=== PATIENT | male | born 1960 | race American Indian/Alaskan Native ===

== ENCOUNTER 2021-09-25 13:21 | Inpatient (IN) | payer MEDICAID ==
[2021-09-25] MEDS ORDERED: hydrALAZINE 20 MG/1 ML INJ IV ONE (13:31)
--- NOTE | 2021-09-25 13:37 | Emergency Department Report ---
<LINDSAY BOSWELLMicheal - Last Filed: 09/25/21 16:17> ED General Adult HPI - General Chief complaint: High BP Stated complaint: NAUSEA/HYPERTENSION Time Seen by Provider: 09/25/21 13:29 - Related Data Home Medications Medication Instructions Recorded Confirmed Last Taken lisinopriL [Zestril TAB] 40 mg PO QDAY 09/26/21 09/26/21 Unknown Previous Rx's Medication Instructions Recorded Last Taken Type Valsartan [Diovan] 160 mg PO Q12H #60 tablet 09/27/21 Unknown Rx Zolpidem [Ambien] 5 mg PO QHS PRN #30 tablet 09/27/21 Unknown Rx amLODIPine 10 mg PO QDAY #30 tablet 09/27/21 Unknown Rx carvediloL [Coreg] 12.5 mg PO BID #60 09/27/21 Unknown Rx Allergies Allergy/AdvReac Type Severity Reaction Status Date / Time No Known Allergies Allergy Verified 09/25/21 13:31 ED Past Medical Hx - Medications Home Medications: Home Medications Medication Instructions Recorded Confirmed Last Taken Type lisinopriL [Zestril TAB] 40 mg PO QDAY 09/26/21 09/26/21 Unknown History Valsartan [Diovan] 160 mg PO Q12H #60 tablet 09/27/21 Unknown Rx Zolpidem [Ambien] 5 mg PO QHS PRN #30 tablet 09/27/21 Unknown Rx amLODIPine 10 mg PO QDAY #30 tablet 09/27/21 Unknown Rx carvediloL [Coreg] 12.5 mg PO BID #60 09/27/21 Unknown Rx ED Medical Decision Making - Lab Data Result diagrams: 09/25/21 14:10 09/25/21 14:10 - Radiology Data Radiology results: report reviewed - Medical Decision Making Patient is 61 years old male signed out to me by my colleagues . Patient presented with significantly elevated blood pressure. Patient received hydralazine 20 mg IV with no significant improvement. He also received lab etalol 20 mg IV with no significant improvement. I started patient on Cardene drip. Labs reviewed and is unremarkable. I discussed the patient with Dr. Puente, he agreed to admit the patient to the [facility] for further management. Critical Care Time: Yes Critical care time in (mins) excluding proc time.: 35 ED Disposition Clinical Impression: Hypertensive urgency, Hypertensive emergency Disposition: 09 ADMITTED INPATIENT Is pt being admited?: Yes Condition: Stable <ROSY PUENTE - Last Filed: 09/26/21 08:14> ED Medical Decision Making - Lab Data Result diagrams: 09/26/21 05:35 09/26/21 05:35 <HECTOR ZAPIEN - Last Filed: 09/28/21 16:32> ED General Adult HPI - General Source: patient, EMS Mode of arrival: Ambulatory Limitations: No Limitations - History of Present Illness Initial comments: 61-year-old male brought in by ambulance with history of generalized malaise associated with elevated blood pressure. Patient reported that he has not been feeling well since last night. He reports nausea without any emesis. Patient reported that he has not taken his antihypertensive medication. EMS noted that patient blood pressure was above 200/100 mmHg on presentation. Patient denies any fever or chills. No other modifying or positive factors reported. ED Review of Systems ROS: Stated complaint: NAUSEA/HYPERTENSION Other details as noted in HPI Comment: All other systems reviewed and negative Constitutional: malaise Cardiovascular: other (Hypertensive urgency) ED Past Medical Hx - Past Medical History Hx Hypertension: Yes ED Physical Exam - General Limitations: No Limitations General appearance: alert, in no apparent distress - Head Head exam: Present: atraumatic, normal inspection - Eye Eye exam: Present: normal appearance Pupils: Present: normal accommodation - ENT ENT exam: Present: normal exam, normal orophraynx, mucous membranes dry, TM's normal bilaterally - Neck Neck exam: Present: normal inspection, full ROM. Absent: tenderness, meningismus - Respiratory Respiratory exam: Present: normal lung sounds bilaterally. Absent: respiratory distress, accessory muscle use - Cardiovascular Cardiovascular Exam: Present: regular rate, normal rhythm, normal heart sounds - GI/Abdominal GI/Abdominal exam: Present: soft, normal bowel sounds. Absent: distended, tenderness - Extremities Exam Extremities exam: Present: normal inspection, full ROM, normal capillary refill - Back Exam Back exam: Present: normal inspection, full ROM. Absent: tenderness - Neurological Exam Neurological exam: Present: alert, altered, oriented X3 - Psychiatric Psychiatric exam: Present: normal affect, normal mood ED Course Vital Signs 05/04/22 05/04/22 05/04/22 13:27 13:30 13:31 Pulse Rate 75 Respiratory Rate Blood Pressure Blood Pressure 146/128 [Left] O2 Sat by Pulse 95 98 98 Oximetry 09/25/21 09/25/21 09/25/21 13:45 13:48 14:01 Pulse Rate 73 82 Respiratory 17 18 Rate Blood Pressure Blood Pressure 211/114 [Left] O2 Sat by Pulse 98 100 98 Oximetry 09/25/21 09/25/21 09/25/21 14:15 14:31 14:54 Pulse Rate 85 87 79 Respiratory 14 17 12 Rate Blood Pressure 208/109 Blood Pressure [Left] O2 Sat by Pulse 99 99 99 Oximetry 09/25/21 09/25/21 09/25/21 14:56 15:01 15:02 Pulse Rate 87 76 80 Respiratory 16 22 Rate Blood Pressure 187/103 208/109 Blood Pressure 208/109 [Left] O2 Sat by Pulse 100 99 Oximetry 09/25/21 09/25/21 09/25/21 15:15 15:31 15:45 Pulse Rate 80 69 69 Respiratory 12 16 18 Rate Blood Pressure 192/110 187/109 183/105 Blood Pressure [Left] O2 Sat by Pulse 99 99 98 Oximetry 09/25/21 09/25/21 09/25/21 16:01 16:15 16:31 Pulse Rate 67 64 69 Respiratory 19 17 16 Rate Blood Pressure 210/103 199/101 186/105 Blood Pressure [Left] O2 Sat by Pulse 99 99 98 Oximetry 09/25/21 09/25/21 09/25/21 16:45 17:01 17:15 Pulse Rate Respiratory Rate Blood Pressure 181/96 201/110 205/99 Blood Pressure [Left] O2 Sat by Pulse 100 99 99 Oximetry 09/25/21 09/25/21 09/25/21 17:31 17:45 18:01 Pulse Rate Respiratory Rate Blood Pressure 202/108 202/108 184/96 Blood Pressure [Left] O2 Sat by Pulse 100 98 99 Oximetry 09/25/21 09/25/21 09/25/21 18:15 18:31 18:45 Pulse Rate Respiratory Rate Blood Pressure 184/96 184/96 184/96 Blood Pressure [Left] O2 Sat by Pulse 100 100 98 Oximetry 09/25/21 09/25/21 09/25/21 19:03 19:10 19:15 Pulse Rate 80 80 Respiratory 13 17 Rate Blood Pressure 184/96 192/102 Blood Pressure 192/102 [Left] O2 Sat by Pulse 100 100 100 Oximetry 09/25/21 09/25/21 09/25/21 19:31 19:45 20:01 Pulse Rate 80 80 90 Respiratory 14 17 16 Rate Blood Pressure 167/88 167/88 170/91 Blood Pressure [Left] O2 Sat by Pulse 100 100 99 Oximetry 09/25/21 09/25/21 09/25/21 20:15 20:31 20:45 Pulse Rate Respiratory Rate Blood Pressure 170/91 175/133 175/133 Blood Pressure [Left] O2 Sat by Pulse 99 98 98 Oximetry 09/25/21 09/25/21 09/25/21 21:01 21:15 21:31 Pulse Rate Respiratory Rate Blood Pressure 169/89 183/94 183/94 Blood Pressure [Left] O2 Sat by Pulse 97 100 100 Oximetry 09/25/21 09/25/21 09/25/21 21:41 21:51 22:01 Pulse Rate Respiratory Rate Blood Pressure 183/94 183/94 187/101 Blood Pressure [Left] O2 Sat by Pulse 100 100 99 Oximetry 09/25/21 09/25/21 09/25/21 22:11 22:21 22:31 Pulse Rate Respiratory Rate Blood Pressure 187/101 187/101 187/101 Blood Pressure [Left] O2 Sat by Pulse 100 100 100 Oximetry 09/25/21 09/25/21 09/25/21 22:41 22:51 23:00 Pulse Rate Respiratory Rate Blood Pressure 187/101 187/101 Blood Pressure [Left] O2 Sat by Pulse 100 100 99 Oximetry 09/25/21 23:01 Pulse Rate Respiratory Rate Blood Pressure 187/101 Blood Pressure [Left] O2 Sat by Pulse 100 Oximetry - Reevaluation(s) Reevaluation #1: 09/25/21 13:36 Here with not feeling well and noted with hypertensive urgency with blood pressure of 218/116 mmHg on presentation to the emergency room--we will go ahead and give hydralazine 20 mg IV x1 considering that this patient heart rate was 62 bpm--we will also go ahead and check cardiac work-up including troponin, BNP, and routine CBC and CMP for any electrolyte or infectious process. Reevaluation #2: 09/25/21 14:58 Upon reevaluation patient blood pressure is only better to 208/106 mmHg so we will go ahead and give additional 20 mg of labetalol and continue to monitor. Patient work-up lab still pending at this point. Patient will be signed out to incoming physician for further evaluation and treatment. 09/25/21 15:29 Pt signed out to Dr Boswell while waiting for patient workup labs and to continue to monitor patients blood pressure. ED Medical Decision Making - Lab Data Result diagrams: 09/26/21 05:35 09/26/21 05:35 Critical care attestation.: If time is entered above; I have spent that time in minutes in the direct care of this critically ill patient, excluding procedure time. ED Disposition Is pt being admited?: No Does the pt Need Aspirin: No
--- NOTE | 2021-09-25 14:09 | XRay Report ---
XR chest 1V ap INDICATION / CLINICAL INFORMATION: HTN. COMPARISON: None available. FINDINGS: SUPPORT DEVICES: None. HEART /PULMONARY VASCULATURE: Heart is enlarged. No significant pulmonary vasculature congestion. LUNGS / PLEURA: No significant pulmonary or pleural abnormality. No pneumothorax. IMPRESSION: 1. No acute findings. Signer Name: Chris Tolentino MD Signed: 09/25/2021 2:04 PM Workstation Name: [id number]
[2021-09-25 14:45] LABS: Basophils % (Auto) 0.6 % (0.0-1.8); Eosinophils % (Auto) 0.8 % (0.0-4.3); Hematocrit 40.2 % (35.5-45.6); Hemoglobin 14.1 gm/dl (11.8-15.2); Lymphocytes # (Auto) 0.7 K/mm3 (1.2-5.4); Lymphocytes % (Auto) 16.3 % (13.4-35.0); Mean Corpuscular HGB Conc 35 % (32-34); Mean Corpuscular Volume 93 fl (84-94); Monocytes # (Auto) 0.4 K/mm3 (0.0-0.8); Monocytes % (Auto) 8.8 % (0.0-7.3); Platelet Count 121 K/mm3 (140-440); Red Blood Count 4.34 M/mm3 (3.65-5.03); Red Cell Distribution Width 13.8 % (13.2-15.2)
[2021-09-25 14:54] LABS: INR 0.97 (0.87-1.13)
[2021-09-25 14:55] LABS: Partial Thromboplastin Time 27.9 Sec. (24.2-36.6)
[2021-09-25 14:58] LABS: Alanine Aminotransferase 7 units/L (7-56); Albumin 4.6 g/dL (3.9-5); BUN/Creatinine Ratio 8; Blood Urea Nitrogen 11 mg/dL (9-20); Calcium 9.5 mg/dL (8.4-10.2); Hemolysis Index 8
[2021-09-25] MEDS ORDERED: ACETAMINOPHEN 325 MG TAB PO PRN ×2 (16:20→20:08)
[2021-09-25] MEDS ORDERED: MORPHINE 2 MG/1 ML INJ IV PRN (16:20)
[2021-09-25] MEDS ORDERED: niCARdipine 50 MG in SODIUM CHLORIDE 0.9% 250ML 230 ML IV SCH (17:00)
[2021-09-25 19:12] LABS: Amphetamine Screen,Urine Negative; Benzodiazepines Screen,Urine Negative; Cannabinoid Screen,Urine Negative; Cocaine Screen,Urine Negative; Methadone Screen,Urine Negative; Opiate Screen,Urine Negative
[2021-09-25 19:18] LABS: Hyaline Casts,Urine 1 /LPF; WBC,Urine < 1.0 /HPF (0.0-6.0)
[2021-09-25 19:26] LABS: Bilirubin,Urine NEG (Negative); Blood,Urine SM (Negative); Color,Urine Straw (Yellow); Protein,Urine <15 mg/dL mg/dL (Negative); Urobilinogen,Urine < 2.0 mg/dL (<2.0)
--- NOTE | 2021-09-25 20:07 | History and Physical Report ---
History of Present Illness Date of examination: 09/25/21 Date of admission: 09/25/21 16:20 Chief complaint: Severe weakness and malaise History of present illness: 61-year-old male brought in by ambulance with history of generalized malaise associated with elevated blood pressure. Patient reported that he has not been feeling well since last night. He reports nausea without any emesis. Patient reported that he has not taken his antihypertensive medication. EMS noted that patient blood pressure was above 200/100 mmHg on presentation. Patient denies any fever or chills. No other modifying or positive factors reported. Past History Past Medical History: hypertension Past Surgical History: No surgical history Social history: lives with family, full code Family history: hypertension Medications and Allergies Allergies Allergy/AdvReac Type Severity Reaction Status Date / Time No Known Allergies Allergy Verified 09/25/21 13:31 Home Medications Medication Instructions Recorded Confirmed Last Taken Type carvediloL [Coreg] 50 mg PO BID 09/26/21 09/26/21 Unknown History lisinopriL [Zestril TAB] 40 mg PO QDAY 09/26/21 09/26/21 Unknown History Active Meds: Active Medications Acetaminophen (Acetaminophen 325 Mg Tab) 650 mg PO Q6H PRN PRN Reason: Pain MILD(1-3)/Fever >100.5/ALLEN Nicardipine HCl 50 mg/ Sodium (Chloride) 250 mls @ 25 mls/hr IV TITR FATIMAH; Protocol Last Admin: 09/25/21 17:24 Dose: 5 mg/hr, 25 mls/hr Morphine Sulfate (Morphine 2 Mg/1 Ml Inj) 2 mg IV Q4H PRN PRN Reason: Pain, Moderate (4-6) Sodium Chloride (Sodium Chloride 0.9% 10 Ml Flush Syringe) 10 ml IV BID FATIMAH Sodium Chloride (Sodium Chloride 0.9% 10 Ml Flush Syringe) 10 ml IV PRN PRN PRN Reason: LINE FLUSH Review of Systems All systems: negative Exam - Constitutional Vitals: Temp Pulse Resp BP Pulse Ox 80 13 192/102 100 09/25/21 19:10 09/25/21 19:10 09/25/21 19:10 09/25/21 19:10 General appearance: Present: no acute distress, well-nourished - EENT Eyes: Present: PERRL ENT: hearing intact, clear oral mucosa - Neck Neck: Present: supple, normal ROM - Respiratory Respiratory effort: normal Respiratory: bilateral: CTA - Cardiovascular Heart rate: 78 Rhythm: regular Heart Sounds: Present: S1 & S2. Absent: rub, click - Extremities Extremities: pulses symmetrical, No edema Peripheral Pulses: within normal limits - Abdominal General gastrointestinal: Present: soft, non-tender, non-distended, normal bowel sounds Male genitourinary: Present: normal - Integumentary Integumentary: Present: clear, warm, dry - Musculoskeletal Musculoskeletal: gait normal, strength equal bilaterally - Psychiatric Psychiatric: appropriate mood/affect, intact judgment & insight - Neurologic Neurologic: CNII-XII intact, moves all extremities HEART Score - HEART Score Troponin: Troponin T < 0.010 ng/mL (0.00-0.029) 09/25/21 14:10 Results - Labs CBC & Chem 7: 09/26/21 05:35 09/26/21 05:35 Labs: Laboratory Last Values WBC 4.4 K/mm3 (4.5-11.0) L 09/25/21 14:10 RBC 4.34 M/mm3 (3.65-5.03) 09/25/21 14:10 Hgb 14.1 gm/dl (11.8-15.2) 09/25/21 14:10 Hct 40.2 % (35.5-45.6) 09/25/21 14:10 MCV 93 fl (84-94) 09/25/21 14:10 MCH 33 pg (28-32) H 09/25/21 14:10 MCHC 35 % (32-34) H 09/25/21 14:10 RDW 13.8 % (13.2-15.2) 09/25/21 14:10 Plt Count 121 K/mm3 (140-440) L 09/25/21 14:10 Lymph % (Auto) 16.3 % (13.4-35.0) 09/25/21 14:10 [place] % (Auto) 8.8 % (0.0-7.3) H 09/25/21 14:10 Eos % (Auto) 0.8 % (0.0-4.3) 09/25/21 14:10 Baso % (Auto) 0.6 % (0.0-1.8) 09/25/21 14:10 Lymph # (Auto) 0.7 K/mm3 (1.2-5.4) L 09/25/21 14:10 [place] # (Auto) 0.4 K/mm3 (0.0-0.8) 09/25/21 14:10 Eos # (Auto) 0.0 K/mm3 (0.0-0.4) 09/25/21 14:10 Baso # (Auto) 0.0 K/mm3 (0.0-0.1) 09/25/21 14:10 Seg Neutrophils % 73.5 % (40.0-70.0) H 09/25/21 14:10 Seg Neutrophils # 3.2 K/mm3 (1.8-7.7) 09/25/21 14:10 PT 14.0 Sec. (12.2-14.9) 09/25/21 14:10 INR 0.97 (0.87-1.13) 09/25/21 14:10 APTT 27.9 Sec. (24.2-36.6) 09/25/21 14:10 Sodium 140 mmol/L (137-145) 09/25/21 14:10 Potassium 3.5 mmol/L (3.6-5.0) L 09/25/21 14:10 Chloride 102.6 mmol/L (98-107) 09/25/21 14:10 Carbon Dioxide 26 mmol/L (22-30) 09/25/21 14:10 Anion Gap 15 mmol/L 09/25/21 14:10 BUN 11 mg/dL (9-20) 09/25/21 14:10 Creatinine 1.4 mg/dL (0.8-1.3) H 09/25/21 14:10 Estimated GFR 52 ml/min 09/25/21 14:10 BUN/Creatinine Ratio 8 % 09/25/21 14:10 Glucose 89 mg/dL (75-100) 09/25/21 14:10 Calcium 9.5 mg/dL (8.4-10.2) 09/25/21 14:10 Total Bilirubin 1.00 mg/dL (0.1-1.2) 09/25/21 14:10 AST 14 units/L (5-40) 09/25/21 14:10 ALT 7 units/L (7-56) 09/25/21 14:10 Alkaline Phosphatase 61 units/L (35-129) 09/25/21 14:10 Troponin T < 0.010 ng/mL (0.00-0.029) 09/25/21 14:10 NT-Pro-B Natriuret Pep 398.3 pg/mL (0-900) 09/25/21 14:10 Total Protein 6.9 g/dL (6.3-8.2) 09/25/21 14:10 Albumin 4.6 g/dL (3.9-5) 09/25/21 14:10 Albumin/Globulin Ratio 2.0 % 09/25/21 14:10 TSH 2.750 mlU/mL (0.270-4.200) 09/25/21 14:10 Urine Color Straw (Yellow) 09/25/21 Unknown Urine Turbidity Clear (Clear) 09/25/21 Unknown Urine pH 8.0 (5.0-7.0) H 09/25/21 Unknown Ur Specific [place] 1.005 (1.003-1.030) 09/25/21 Unknown Urine Protein <15 mg/dl mg/dL (Negative) 09/25/21 Unknown Urine Glucose (UA) Neg mg/dL (Negative) 09/25/21 Unknown Urine Ketones Neg mg/dL (Negative) 09/25/21 Unknown Urine Blood Sm (Negative) 09/25/21 Unknown Urine Nitrite Neg (Negative) 09/25/21 Unknown Ur Reducing Substances Not Reportable 09/25/21 Unknown Urine Bilirubin Neg (Negative) 09/25/21 Unknown Urine Ictotest Not Reportable 09/25/21 Unknown Urine Urobilinogen < 2.0 mg/dL (<2.0) 09/25/21 Unknown Ur Leukocyte Esterase Neg (Negative) 09/25/21 Unknown Urine WBC (Auto) < 1.0 /HPF (0.0-6.0) 09/25/21 Unknown Urine RBC (Auto) 2.0 /HPF (0.0-6.0) 09/25/21 Unknown U Epithel Cells (Auto) < 1.0 /HPF (0-13.0) 09/25/21 Unknown Hyaline Casts 1 /LPF 09/25/21 Unknown Urine Opiates Screen Negative 09/25/21 Unknown Urine Methadone Screen Negative 09/25/21 Unknown Ur Barbiturates Screen Negative 09/25/21 Unknown Ur Phencyclidine Scrn Negative 09/25/21 Unknown Ur Amphetamines Screen Negative 09/25/21 Unknown U Benzodiazepines Scrn Negative 09/25/21 Unknown Urine Cocaine Screen Negative 09/25/21 Unknown U Marijuana (THC) Screen Negative 09/25/21 Unknown Drugs of Abuse Note Disclamer 09/25/21 Unknown Short CBC 09/25/21 09/26/21 Range/Units 14:10 05:35 WBC 4.4 L 4.9 (4.5-11.0) K/mm3 Hgb 14.1 13.5 (11.8-15.2) gm/dl Hct 40.2 39.1 (35.5-45.6) % Plt Count 121 L 118 L (140-440) K/mm3 BMP 09/25/21 09/26/21 14:10 05:35 Sodium 140 140 Potassium 3.5 L 3.3 L Chloride 102.6 102.2 Carbon Dioxide 26 25 BUN 11 12 Creatinine 1.4 H 1.2 Glucose 89 102 H Calcium 9.5 9.6 Cardiac Enzymes 09/25/21 Range/Units 14:10 Troponin T < 0.010 (0.00-0.029) ng/mL Liver Function 09/25/21 09/26/21 Range/Units 14:10 05:35 Total Bilirubin 1.00 0.50 (0.1-1.2) mg/dL AST 14 12 (5-40) units/L ALT 7 6 L (7-56) units/L Alkaline Phosphatase 61 66 (35-129) units/L Albumin 4.6 4.3 (3.9-5) g/dL Urine 09/25/21 Range/Units Unknown Urine Color Straw (Yellow) Urine pH 8.0 H (5.0-7.0) Ur Specific [place] 1.005 (1.003-1.030) Urine Protein <15 mg/dl (Negative) mg/dL Urine Glucose (UA) Neg (Negative) mg/dL - Imaging and Cardiology EKG: report reviewed Assessment and Plan Advance Directives: Yes (Full code) VTE prophylaxis?: Chemical Plan of care discussed with patient/family: Yes - Patient Problems (1) Hypertensive emergency Current Visit: Yes Status: Acute Plan to address problem: Initially patient was initiated on Cardene drip Antihypertensives valsartan, 160 mg every 12 hours, carvedilol 12.5 every 12 and amlodipine 10 mg were initiated Cardizem drip was discontinued in the emergency room Patient was downgraded to telemetry Continue antihypertensives Patient counseled on being compliant (2) Hypokalemia Current Visit: Yes Status: Acute Plan to address problem: Supplemented (3) DVT prophylaxis Current Visit: Yes Status: Acute Plan to address problem: On heparin and GI prophylaxis (4) Advance care planning Current Visit: Yes Status: Acute Plan to address problem: Disease education conducted, care plan discussed, diagnosis discussed, prognosis discussed. Patient is full code. Patient Acknowledges understanding and agreement with care plan. +30 minutes.
[2021-09-25] MEDS ORDERED: ONDANSETRON 4 MG/2 ML INJ IV PRN (20:08)
[2021-09-25] MEDS ORDERED: METOCLOPRAMIDE 10 MG/2 ML INJ IV PRN (20:08)
[2021-09-26] MEDS: VALSARTAN 160MG TAB PO SCH ×3 (00:09→21:05)
[2021-09-26] MEDS: amLODIPine 10 MG TAB PO SCH ×2 (00:09→09:03)
[2021-09-26] MEDS: FAMOTIDINE 20 MG TAB PO SCH ×3 (00:09→21:05)
[2021-09-26] MEDS: hydrALAZINE 20 MG/1 ML INJ IV PRN (05:08)
[2021-09-26 06:07] LABS: Basophils % (Auto) 0.8 % (0.0-1.8); Eosinophils # (Auto) 0.1 K/mm3 (0.0-0.4); Eosinophils % (Auto) 1.4 % (0.0-4.3); Hematocrit 39.1 % (35.5-45.6); Hemoglobin 13.5 gm/dl (11.8-15.2); Lymphocytes # (Auto) 0.9 K/mm3 (1.2-5.4); Mean Corpuscular HGB Conc 35 % (32-34); Mean Corpuscular Volume 94 fl (84-94); Monocytes # (Auto) 0.5 K/mm3 (0.0-0.8); Monocytes % (Auto) 9.6 % (0.0-7.3); Platelet Count 118 K/mm3 (140-440); Red Blood Count 4.17 M/mm3 (3.65-5.03); Red Cell Distribution Width 13.8 % (13.2-15.2)
[2021-09-26 06:42] LABS: Alanine Aminotransferase 6 units/L (7-56); Albumin 4.3 g/dL (3.9-5); BUN/Creatinine Ratio 10; Blood Urea Nitrogen 12 mg/dL (9-20); Calcium 9.6 mg/dL (8.4-10.2); Hemolysis Index 5
[2021-09-26] MEDS: oxyCODONE /ACETAMINOPHEN 5-325MG TAB PO PRN (08:15)
[2021-09-26] MEDS ORDERED: POTASSIUM CHLORIDE ER 20 MEQ TAB PO SCH (08:30)
--- NOTE | 2021-09-26 10:49 | Electrocardiograph Report ---
[facility] Test Date: 2021-09-25 Test Time: 13:33:40 Pat Name: JOSE STAFFORD Department: Room: A454 Gender: M Client Relations Representative: HALIE : 1960 Requested By: EHCTOR ZAPIEN Order Number: [id number] Reading MD: Estiven Woodard Measurements Intervals Bulger Rate: 60 P: 40 VT: 149 QRS: 48 QRSD: 101 T: 246 QT: 481 QTc: 480 Interpretive Statements Sinus rhythm Probable left atrial enlargement LVH with secondary repolarization abnormality ST elevation secondary to LVH No previous ECG available for comparison Electronically Signed On 09-26-2021 10:48:46 EDT by Estiven Woodard
[2021-09-27] MEDS: oxyCODONE /ACETAMINOPHEN 5-325MG TAB PO PRN ×2 (01:35→11:12)
[2021-09-27] MEDS: hydrALAZINE 20 MG/1 ML INJ IV PRN (03:01)
--- NOTE | 2021-09-27 07:31 | Progress Note ---
Assessment and Plan - Patient Problems (1) Hypertensive emergency Current Visit: Yes Status: Acute Plan to address problem: Initially patient was initiated on Cardene drip Antihypertensives valsartan, 160 mg every 12 hours, carvedilol 12.5 every 12 and amlodipine 10 mg were initiated Cardizem drip was discontinued in the emergency room Patient was downgraded to telemetry Continue antihypertensives Patient counseled on being compliant (2) Hypokalemia Current Visit: Yes Status: Acute Plan to address problem: Supplemented (3) DVT prophylaxis Current Visit: Yes Status: Acute Plan to address problem: On heparin and GI prophylaxis (4) Advance care planning Current Visit: Yes Status: Acute Plan to address problem: Disease education conducted, care plan discussed, diagnosis discussed, prognosis discussed. Patient is full code. Patient Acknowledges understanding and agreement with care plan. +30 minutes. Subjective Date of service: 09/27/21 Principal diagnosis: Hypertensive emergency Interval history: 61-year-old male brought in by ambulance with history of generalized malaise associated with elevated blood pressure. Patient reported that he has not been feeling well since last night. He reports nausea without any emesis. Patient reported that he has not taken his antihypertensive medication. EMS noted that patient blood pressure was above 200/100 mmHg on presentation. Patient denies any fever or chills. No other modifying or positive factors reported. 09/26/2021 Blood pressure continues to be high Objective - Constitutional Vitals: Vital Signs - 12hr 09/26/21 09/26/21 09/27/21 20:00 20:21 00:00 Temperature 98.0 F 99.0 F Pulse Rate 117 H 90 99 H Respiratory 18 18 Rate Blood Pressure 171/98 171/97 O2 Sat by Pulse 100 100 Oximetry 09/27/21 03:31 Temperature 98.5 F Pulse Rate 97 H Respiratory 18 Rate Blood Pressure 170/87 O2 Sat by Pulse 97 Oximetry General appearance: Present: no acute distress, well-nourished - EENT Eyes: PERRL, EOM intact ENT: hearing intact, clear oral mucosa Ears: bilateral: normal - Neck Neck: supple, normal ROM - Respiratory Respiratory effort: normal Respiratory: bilateral: CTA - Breasts Breasts: normal - Cardiovascular Heart rate: 78 Rhythm: regular Heart Sounds: Present: S1 & S2. Absent: gallop, rub Extremities: pulses intact, No edema, normal color, Full ROM - Gastrointestinal General gastrointestinal: Present: soft, non-tender, non-distended, normal bowel sounds - Genitourinary Male genitourinary: normal - Integumentary Integumentary: clear, warm, dry - Musculoskeletal Musculoskeletal: 1, strength equal bilaterally - Neurologic Neurologic: moves all extremities - Psychiatric Psychiatric: memory intact, appropriate mood/affect, intact judgment & insight - Labs CBC & Chem 7: 09/26/21 05:35 09/26/21 05:35 HEART Score - HEART Score Troponin: Troponin T < 0.010 ng/mL (0.00-0.029) 09/25/21 14:10
[2021-09-27] MEDS: VALSARTAN 160MG TAB PO SCH (08:59)
[2021-09-27] MEDS: FAMOTIDINE 20 MG TAB PO SCH (09:00)
[2021-09-27] MEDS: amLODIPine 10 MG TAB PO SCH (09:00)
[2021-09-27 17:13] VITALS: BP 107/90
--- NOTE | 2021-09-27 17:57 | Discharge Summary ---
Providers - Providers Date of Admission: 09/25/21 16:20 Date of discharge: 09/27/21 Attending physician: ROSY PUENTE Primary care physician: [facility] Hospitalization Condition: Stable Hospital course: Subjective Date of service: 09/27/21 Principal diagnosis: Hypertensive emergency Interval history: 61-year-old male brought in by ambulance with history of generalized malaise associated with elevated blood pressure. Patient reported that he has not been feeling well since last night. He reports nausea without any emesis. Patient reported that he has not taken his antihypertensive medication. EMS noted that patient blood pressure was above 200/100 mmHg on presentation. Patient denies any fever or chills. No other modifying or positive factors reported. 09/26/2021 Blood pressure continues to be high 09/27/2021 Blood pressure is normalized Daughter at bedside Discussed with daughter and the patient about his diagnosis and prognosis and the need to take medications on a regular basis also to stop smoking And exercise - Patient Problems (1) Hypertensive emergency Current Visit: Yes Status: Acute Plan to address problem: Patient to be discharged on ARB's, carvedilol and amlodipine (2) Hypokalemia Current Visit: Yes Status: Acute Plan to address problem: Corrected (3) nicotine dependence/smoking cessation Patient counseled Patient given alternatives rin and GI prophylaxis like Chantix and NicoDerm patch (4) Advance care planning Current Visit: Yes Status: Acute Plan to address problem: Disease education conducted, care plan discussed, diagnosis discussed, prognosis discussed. Patient is full code. Patient Acknowledges understanding and agreement with care plan. +30 minutes. Disposition: 01 HOME / SELF CARE / HOMELESS Final Discharge Diagnosis (Prints w/discharge instructions): Hypertensive emergency. Hypokalemia. Nicotine dependence. Smoking cessation Time spent for discharge: 33 minutes - Discharge Diagnoses (1) Hypertensive emergency Status: Acute (2) Hypokalemia Status: Acute (3) DVT prophylaxis Status: Acute (4) Advance care planning Status: Acute Core Measure Documentation - Palliative Care Palliative Care/ Comfort Measures: Not Applicable - Core Measures Any of the following diagnoses?: none Exam - Constitutional Vitals: Temp Pulse Resp BP Pulse Ox 98.6 F 18 L 18 107/90 96 09/27/21 17:12 09/27/21 17:12 09/27/21 17:12 09/27/21 17:12 09/27/21 17:12 General appearance: Present: no acute distress, well-nourished - EENT Eyes: Present: PERRL ENT: hearing intact, clear oral mucosa - Neck Neck: Present: supple, normal ROM - Respiratory Respiratory effort: normal Respiratory: bilateral: CTA - Cardiovascular Heart rate: 78 Rhythm: regular Heart Sounds: Present: S1 & S2. Absent: rub, click - Extremities Extremities: pulses symmetrical, No edema Peripheral Pulses: within normal limits - Abdominal General gastrointestinal: Present: soft, non-tender, non-distended, normal bowel sounds Male genitourinary: Present: normal - Integumentary Integumentary: Present: clear, warm, dry - Musculoskeletal Musculoskeletal: gait normal, strength equal bilaterally - Psychiatric Psychiatric: appropriate mood/affect, intact judgment & insight - Neurologic Neurologic: CNII-XII intact, moves all extremities Plan Activity: no restrictions Diet: low fat, low cholesterol, low salt Follow up with: [facility] [Primary Care Provider] - 7 Days
== END 2021-09-27 19:24 | disposition home or self-care (01) | DRG 305 ==
LOC: ED 13:21 → CC1 16:20 → 4A 21:12
PROVIDERS: ADMIT Internal Medicine; ATTEND Internal Medicine
DX: I16.1 Hypertensive emergency (principal); E87.6 Hypokalemia; Z79.899 Other long term (current) drug therapy; I10 Essential (primary) hypertension; Z82.49 Family history of ischemic heart disease and other diseases of the circulatory system; F17.200 Nicotine dependence, unspecified, uncomplicated; Z71.6 Tobacco abuse counseling
CPT/HCPCS: 36415; 71045; 80053; 80307; 81001; 83880; 84443; 84484; 85025; 85610; 85730; 93005; 96365; 96375; 99291; 99406; G0378; J3490; J0360; J7050